=== PATIENT | male | born 1985 | race Caucasian/White ===

== ENCOUNTER 2017-02-19 01:29 | Inpatient (IN) | payer MEDICAID, OTHER ==
[~2017-02-19] VITALS: Ht 170.2 cm; Wt 94.5 kg
[2017-02-19 01:33] VITALS: Ht 170.2 cm; Wt 94.5 kg
[2017-02-19] MEDS ORDERED: CEFTRIAXONE 1 GM/50 ML (PMX) 50 ML IVPB STA (06:17)
[2017-02-19] MEDS ORDERED: SODIUM CHLORIDE 0.9% 1L BAG IV* STA (06:17)
[2017-02-19 06:29] LABS: ABNORMAL IP MESSAGE 1; BASOPHIL # 0.1 10^3/ul (0.0-0.1); BASOPHILS % 0.5 % (0.0-2.0); EOSINOPHILS # 0.1 10^3/ul (0.0-0.5); EOSINOPHILS % 0.4 % (0.0-7.0); HEMATOCRIT 46.5 % (42.0-52.0); HEMOGLOBIN 16.2 g/dl (14.0-18.0); LYMPHOCYTES # 3.2 10^3/ul (0.8-2.9); LYMPHOCYTES % 13.4 % (15.0-51.0); MEAN CORPUSCULAR HEMOGLOBIN 28.9 pg (29.0-33.0); MEAN CORPUSCULAR HGB CONC 34.8 g/dl (32.0-37.0); MEAN PLATELET VOLUME 8.5 fl (7.4-10.4); MONOCYTE # 1.6 10^3/ul (0.3-0.9); MONOCYTES % 6.6 % (0.0-11.0); NEUTROPHIL # 18.8 10^3/ul (1.6-7.5); NEUTROPHILS % 78.4 % (39.0-77.0); PLATELET COUNT 419 10^3/UL (140-415); POSITIVE DIFF @See below; RED CELL DISTRIBUTION WIDTH 13.7 % (11.5-14.5)
[2017-02-19] MEDS ORDERED: VANCOMYCIN 1 GM (PMX) 250 ML IVPB ONE (06:30)
[2017-02-19 06:52] LABS: ALBUMIN 4.6 g/dl (3.3-4.9); ALBUMIN/GLOBULIN RATIO 1.15; BILIRUBIN,INDIRECT 0.8 mg/dl (0-1.1); BILIRUBIN,TOTAL 0.8 mg/dl (0.2-1.3); CALCIUM 9.4 mg/dl (8.4-10.2); CREATININE 0.88 mg/dl (0.61-1.24); TOTAL PROTEIN 8.6 g/dl (6.1-8.1)
[2017-02-19 07:01] LABS: ADD UMIC YES; UR ASCORBIC ACID NEGATIVE (NEGATIVE); UR BILIRUBIN (Dip) NEGATIVE (NEGATIVE); UR BLOOD (Dip) 1+ mg/dL (NEGATIVE); UR CLARITY CLEAR (CLEAR); UR COLOR YELLOW (YELLOW); UR GLUCOSE (Dip) NEGATIVE (NEGATIVE); UR KETONES (Dip) NEGATIVE (NEGATIVE); UR LEUKOCYTE ESTERASE (Dip) TRACE Leu/ul (NEGATIVE); UR NITRITE (Dip) NEGATIVE (NEGATIVE); UR NONSQUAMOUS EPITHELIAL CELL 1 /HPF (NONE SEEN); UR RBC 3 /HPF (0-5); UR SPECIFIC GRAVITY (Dip) 1.014 (1.003-1.030); UR TOTAL PROTEIN (Dip) NEGATIVE (NEGATIVE); UR UROBILINOGEN (Dip) NEGATIVE (NEGATIVE)
--- NOTE | 2017-02-19 07:05 | RADRPT ---
PROCEDURE: US DVT. CLINICAL INDICATION: Left upper extremity swelling and pain. TECHNIQUE: Multiple longitudinal and transverse images of the left upper extremity veins were obta ined with goodwin scale and color Doppler imaging. 2D grayscale measurements with compression, color D oppler flow, and augmentation was performed. COMPARISON: No prior studies are available for comparison. FINDINGS: The left jugular vein, subclavian vein, axillary vein, and brachial veins are normally compressible throughout. Color flow demonstrates normal filling of the vessel. Normal waveforms are visualized and there is normal response to augmentation. There is soft tissue edema within the antecubital fos sa. IMPRESSION: No evidence of a deep vein thrombosis involving the left upper extremity. RPTAT: HH .Anastasiya Kline MD, MD Date Time Electronically viewed and signed by .Anastasiya Kline MD, MD on 02/19/2017 07:05 .G/
--- NOTE | 2017-02-19 07:27 | RADRPT ---
PROCEDURE: XR Chest. CLINICAL INDICATION: Upper extremity pain and sepsis TECHNIQUE: Single AP view of the chest were obtained COMPARISON: None FINDINGS: The heart and mediastinum are within normal limits. The pulmonary vasculature are unremarkable. The aorta is unremarkable. There is no lung consolidation, pleural effusion or pneumothorax. There i s no acute osseous abnormality. IMPRESSION: No acute disease. RPTAT: AA .Bethany Love MD, MD Date Time Electronically viewed and signed by .Bethany Love MD, MD on 02/19/2017 07:27 .J/
[2017-02-19 07:32] VITALS: TEMP 98.6
[2017-02-19] MEDS ORDERED: SOD CHLORIDE 0.9% 1,000 ML IV SCH ×2 (07:42→12:30)
[2017-02-19 07:45] LABS: INR 0.93; PROTIME 12.5 Sec (12.2-14.2)
[2017-02-19 07:46] LABS: PARTIAL THROMBOPLASTIN TIME 31.7 Sec (25.0-35.0)
--- NOTE | 2017-02-19 07:49 | ERD ---
ER Documentation Chief Complaint Chief Complaint Pt reports he injected meth at 1400, L arm swollen and hot to touch HPI This is a 32-year-old male who presents to the emergency room for evaluation of swollen left arm. This patient does state that he injected methamphetamine at 2 PM on February 18, 2017. The patient states that he noted his arm was hurting and he saw that it was swollen and became progressively worse. The patient noted that his arm was painful and describes his pain as an achy pain worse with any movement of the left arm. Patient denies any other coingestions at this time, and came to the ER today for evaluation of his symptoms. This patient was found to be febrile and tachycardic in triage ROS All systems reviewed and are negative except as per history of present illness. Allergies Allergies: Coded Allergies: No Known Allergy (Unverified , 02/19/17) PMhx/Soc Medical and Surgical Hx: pt denies Medical Hx, pt denies Surgical Hx Hx Alcohol Use: Yes Hx Substance Use: Yes (methamphetamine) Hx Tobacco Use: Yes Smoking Status: Current every day smoker Physical Exam Vitals Vital Signs Date Time Temp Pulse Resp B/P Pulse Ox O2 Delivery O2 Flow Rate FiO2 02/19/17 07:32 98.6 98 16 136/75 97 Room Air 02/19/17 07:28 Nasal Cannula 2 02/19/17 01:33 100.8 133 20 139/77 98 Physical Exam INITIAL VITAL SIGNS: Reviewed by me GENERAL: The patient is well developed and appropriate for usual state of health in no apparent distress HEENT: Pupils equal, round, and reactive to light. EOMI. There is no scleral icterus. NECK: C-spine is soft and supple, there is no meningismus. There is no cervical lymphadenopathy. LUNGS: Clear to auscultation bilaterally. There are no rales, wheezes or rhonchi. HEART: Tachycardic, no murmurs, clicks, rubs or gallops. ABDOMEN: Soft, non-tender, non-distended. There are bowel sounds in all four quadrants. No rebound or guarding. EXTREMITIES: Erythema and soft tissue swelling noted about the left antecubital fossa, there is no peripheral cyanosis, palpable radial and ulnar pulses in the left and right upper extremity which are equal and symmetric bilaterally NEUROLOGICAL: The patient moves all four extremities with 5/5 strength. Cranial nerves II - XII are intact. Normal gait. Alert and oriented SKIN: There is no apparent rash or petechiae. HEME/LYMPHATIC: There is no evidence of excessive bruising or lymphedema. PSYCHIATRIC: The patient does not appear anxious or depressed. Result Diagram: 02/19/17 0558 02/19/17 0558 Results 24 hrs Laboratory Tests Test 02/19/17 05:58 02/19/17 06:05 White Blood Count 24.010^3/ul Red Blood Count 5.6010^6/ul Hemoglobin 16.2g/dl Hematocrit 46.5% Mean Corpuscular Volume 83.0fl Mean Corpuscular Hemoglobin 28.9pg Mean Corpuscular Hemoglobin Concent 34.8g/dl Red Cell Distribution Width 13.7% Platelet Count 80069^3/UL Mean Platelet Volume 8.5fl Neutrophils % 78.4% Lymphocytes % 13.4% Monocytes % 6.6% Eosinophils % 0.4% Basophils % 0.5% Nucleated Red Blood Cells % 0.0/100WBC Neutrophils # 18.810^3/ul Lymphocytes # 3.210^3/ul Monocytes # 1.610^3/ul Eosinophils # 0.110^3/ul Basophils # 0.110^3/ul Nucleated Red Blood Cells # 0.010^3/ul Sodium Level 141mmol/L Potassium Level 4.0mmol/L Chloride Level 103mmol/L Carbon Dioxide Level 26mmol/L Anion Gap 16 Blood Urea Nitrogen 11mg/dl Creatinine 0.88mg/dl Glucose Level 114mg/dl Calcium Level 9.4mg/dl Total Bilirubin 0.8mg/dl Direct Bilirubin 0.00mg/dl Indirect Bilirubin 0.8mg/dl Aspartate Amino Transf (AST/SGOT) 25IU/L Alanine Aminotransferase (ALT/SGPT) 43IU/L Alkaline Phosphatase 129IU/L Total Protein 8.6g/dl Albumin 4.6g/dl Globulin 4.00g/dl Albumin/Globulin Ratio 1.15 Lipase 40U/L Urine Color YELLOW Urine Clarity CLEAR Urine pH 7.0 Urine Specific [place] 1.014 Urine Ketones NEGATIVEmg/dL Urine Nitrite NEGATIVEmg/dL Urine Bilirubin NEGATIVEmg/dL Urine Urobilinogen NEGATIVEmg/dL Urine Leukocyte Esterase TRACELeu/ul Urine Microscopic RBC 3/HPF Urine Microscopic WBC 8/HPF Urine Hemoglobin 1+mg/dL Urine Glucose NEGATIVEmg/dL Urine Total Protein NEGATIVEmg/dl Current Medications Medications (Trade) Dose Ordered Sig/Larry Route PRN Reason Start Time Stop Time Status Last Admin Dose Admin Vancomycin HCl 250 ml @ 125 mls/hr ONCE ONCE IVPB 02/19/17 06:30 02/19/17 08:29 Ceftriaxone Sodium (Rocephin) 50 ml @ 100 mls/hr ONCE STAT IVPB 02/19/17 06:17 02/19/17 06:46 DC 02/19/17 06:50 Sodium Chloride (NS) 3,000 ml BOLUS OVER 2 HOURS STAT IV* 02/19/17 06:17 02/19/17 06:18 DC 02/19/17 06:50 Procedures/MDM EKG: Rate/Rhythm: Sinus tachycardia QRS, ST, T-waves: [No changes consistent w/ acute ischemia] Impression: [No evidence of ischemia or arrhythmia] Chest X-ray 1V Interpreted by me: Soft Tissue: No acute abnormalities Bones: No acute abnormalities Mediastinum/Cardiac Silhouette/Lungs: [No acute abnormalities] Ultrasound upper extremity left: No DVT This 32-year-old male presents to the ER for evaluation of left upper extremity pain and swelling after trying to inject methamphetamine through his left antecubital fossa. This patient was found to be febrile, tachycardic and when I examined the patient he did have a large area of erythema noted about the left antecubital fossa. Lab work was ordered on this patient prior to my arrival and the patient does have elevation in his white blood cell count. Sepsis protocol was started and this patient was started on vancomycin and Rocephin. He was given greater than 30 cc/kg of IV normal saline after blood cultures were obtained. Ultrasound of the left upper extremity does not show any signs of DVT at this time however given his cellulitis with constitutional symptoms of fever, tachycardia and leukocytosis he does meet sepsis criteria will be placed in for admission at this time on the [facility] floor. He is hemodynamically stable with a mean arterial pressure greater than 65 and will be admitted to Dr. Flowers at this time. The patient is aware of his disposition and is okay with her plan of care. Smoking Cessation Therapy: Pt. was lectured for greater than 3 minutes on the health risks of continued smoking and the benefits of cessation. Critical Care: Excluding all billable procedures Time: 38 minutes Treatments/Evaluations: Close monitoring and treatment of unstable vital signs, cardiorespiratory, and neurologic status, while maintaining tight balance of fluid, respiratory, and cardiac interventions. Departure Diagnosis: Primary Impression: Sepsis Additional Impressions: Left arm cellulitis Amphetamine abuse Tobacco abuse Condition: Stable CHARLOTTE OATES DO Feb 19, 2017 07:49
[2017-02-19] MEDS ORDERED: ONDANSETRON 4 MG INJ IV PRN ×2 (08:00→10:00)
[2017-02-19] MEDS ORDERED: ACETAMINOPHEN 325 MG TAB PO PRN ×2 (08:00→10:00)
[2017-02-19] MEDS ORDERED: ACETAMINOPHEN 500 MG TAB PO STA (08:13)
[2017-02-19] MEDS ORDERED: HYDROCODONE/APAP (5/325) TAB PO PRN (10:00)
[2017-02-19] MEDS ORDERED: LEVOFLOXACIN 500MG/D5W (PMX) 100 ML IVPB SCH (10:00)
[2017-02-19] MEDS ORDERED: morphine 2 MG INJ IV PRN (10:00)
[2017-02-19] MEDS ORDERED: VANCOMYCIN IV PER PHARMACY XX SCH (10:00)
[2017-02-19] MEDS ORDERED: NACL 0.9% 3 ML SYG IV SCH (10:00)
--- NOTE | 2017-02-19 12:08 | HP ---
Date/Time of Note Date/Time of Note DATE: 02/19/17 TIME: 12:07 Assessment/Plan VTE Prophylaxis VTE Prophylaxis Intervention: LMWH Assessment/Plan Chief Complaint/Hosp Course 1. Left upper proximity cellulitis. Most probably secondary to IV infiltration of recreational drug. Left upper extremity venous Doppler study has been negative. The patient will be started on empiric antibiotics. Infectious disease consult will be obtained. The patient has no evidence of any underlying abscess. There is no evidence of any necrotizing fasciitis. 2. Sepsis with underlying left upper extremity cellulitis. No evidence of any septic shock. Lactic acid levels within normal limits. The patient will be adequately hydrated. The patient will be made on empiric antibiotics. Pancultures will be obtained. 3. Substance abuse. Cessation will be advised. A urine drug screen will be obtained. Hepatitis panel will be obtained. Plan: The patient will be admitted to inpatient medical surgical floor. The patient will be started on a regular diet. The patient will be started on DVT prophylaxis. The patient will remain a full code. Activities will be as tolerated. The rest of the patient's management will be based on the clinical course, inputs from consultants, and the results of diagnostic studies. Based on the patient's clinical presentation, he most probably requires at least 1 midnight's stay for further management and evaluation of his clinical presentation. The case and management of this patient was fully discussed with Dr. Flowers. Problems: HPI/ROS Admit Date/Time Admit Date/Time Feb 19, 2017 at 07:43 Hx of Present Illness Reason for admission: Left upper extremity swelling and erythema status post methamphetamine injection. Consults 1. Ceasar Drake MD, Infectious Diseases This is a 32-year-old male with no significant past medical history who came to the emergency room with chief complaint of left upper extremity edema, erythema , and pain that started after he injected methamphetamine to his left upper extremity. The patient verbalized that he has been using methamphetamine through his veins for a while. The patient verbalized subjective fevers. The patient denied any secretions from the area of redness. In the emergency room, the patient was noticed to have leukocytosis with a WBC of 24,000. The patient' s lactic acid levels were within normal limits. The patient was febrile with a temperature 100.8. The patient was treated with IV vancomycin and IV ceftriaxone in the emergency room. ROS Constitutional: chills Eyes: no complaints ENT: no complaints Respiratory: no complaints Cardiovascular: no complaints Gastrointestinal: no complaints Genitourinary: no complaints Musculoskeletal: bone/joint pain (Left elbow joint) Skin: erythema, rash Neurologic: no complaints Endocrine: no complaints Lymphatic: no complaints Psychological: no complaints Immunologic: no complaints PMH/Family/Social Past Medical History Medical History: no pertinent history Past Surgical History Past Surgical Hx: no surgical history Social History Smoking Status: Current every day smoker Drug Use: other (Methamphetamines) Exam/Review of Systems Vital Signs Vitals Vital Signs Date Time Temp Pulse Resp B/P Pulse Ox O2 Delivery O2 Flow Rate FiO2 02/19/17 07:32 98.6 98 16 136/75 97 Room Air 02/19/17 07:28 2 Labs Result Diagram: 02/19/1758 02/19/1758 Medications Medications Current Medications Sodium Chloride (NS) 1,000 ml @ 80 mls/hr [id number] IV ; Start 02/19/17 at 07:42 ; Stop 02/19/17 at 20:11 Ondansetron HCl (Zofran Inj) 4 mg Q6H PRN IV NAUSEA AND/OR VOMITING; Start at 10:00 Acetaminophen (Tylenol Tab) 650 mg Q6H PRN PO PAIN LEVEL 1-3 OR FEVER; Start 02/19/17 at 10:00 Acetaminophen/ Hydrocodone Bitart (Winston (5/325)) 1 tab Q6H PRN PO MODERATE PAIN LEVEL 4-6; Start 02/19/17 at 10:00 Morphine Sulfate (morphine) 2 mg Q4H PRN IV SEVERE PAIN LEVEL 7-10; Start at 10:00 Enoxaparin Sodium 40 mg 40 mg DAILY SC ; Start 02/20/17 at 09:00 Levofloxacin/ Dextrose 100 ml @ 100 mls/hr Q24H IVPB ; Start 02/19/17 at 10:00 Vancomycin HCl (Vancocin) 250 ml @ 125 mls/hr Q8 IVPB ; Start 02/19/17 at 14: 00 Procedures Procedures 12-Lead EKG Sinus tachycardia CXR IMPRESSION: No evidence of a deep vein thrombosis involving the left upper extremity. LUE Venous Doppler IMPRESSION: No evidence of a deep vein thrombosis involving the left upper extremity. KIARRA MCKAY NP Feb 19, 2017 12:08
--- NOTE | 2017-02-19 13:59 | CONS ---
DATE OF ADMISSION: 02/19/2017 DATE OF CONSULTATION: 02/19/2017 TYPE OF CONSULTATION: Infectious Disease. REASON FOR CONSULTATION: Antibiotic management. HISTORY OF PRESENT ILLNESS: Jude Ovalles is a 32-year-old male who comes in with left upper extremit y cellulitis and is being seen for antibiotic management. The patient is a 32-year-old male with no significant past medical history, comes in with left upper extremity edema, erythema, pain which st arted after he injected methamphetamine to his left upper extremity. He had some subjective fever. In the emergency room, his white count was 24,000, H and H of 16.2 and 46.5, platelet count 419,000 . BUN and creatinine 11/0.88. PAST MEDICAL HISTORY: Operations: None. FAMILY HISTORY: Noncontributory. SOCIAL HISTORY: He smokes every day. He uses methamphetamines and obviously shoots up. No history of alcohol abuse. ALLERGIES: NONE TO PENICILLIN, SULFA OR FOODS. MEDICATIONS: Per chart. REVIEW OF SYSTEMS: As per HPI. PHYSICAL EXAMINATION: GENERAL: The patient is a well-developed, well-nourished male who is awake, responsive, in no acute distress. VITAL SIGNS: Stable. He is afebrile. SKIN: Without generalized rash. HEENT: Within normal limits. NECK: Supple. LYMPH NODES: None palpable. CHEST: Decreased breath sounds at the bases. HEART: Without murmur or gallop. ABDOMEN: Soft, nontender, without organosplenomegaly or masses. EXTREMITIES: He has erythema and soft tissue swelling of the left antecubital fossa without cyanosi s. Pulses are good and symmetrical. RECTAL AND GENITAL: Deferred. NEUROLOGIC: No focal neurological abnormalities. IMPRESSION AND PLAN: 1. The patient presents now with IV drug abuse. He has blood cultures pending. He was started on vancomycin and Levaquin. Blood cultures were ordered urine cultures were ordered. Chest x-ray show s no acute disease. DVT study: No evidence of deep vein thrombophlebitis of left upper extremity. 2. Cellulitis secondary to IV drug abuse. Blood cultures are pending. We will continue him on van comycin and Levaquin. I want to thank the hospitalist for asking us to see this unfortunate gentleman in consultation. Dictated By: SAVI HUERTAS MD, JD/MARIA GUADALUPE Conf#: [id number] DID#: [id number] CC: MICHELLE CRAIG MD;*EndCC*
[2017-02-19 14:00] VITALS: BP 112/59; PULSE 91; RESP 20
[2017-02-19] MEDS: VANCOMYCIN 1 GM in NS 250 ML IVPB SCH ×2 (15:21→22:00)
[2017-02-19 18:24] LABS: CANNABINOIDS Positive (NEGATIVE); OPIATES Negative (NEGATIVE)
[2017-02-19 18:32] LABS: BARBITURATES Negative (NEGATIVE); BENZODIAZEPINES Negative (NEGATIVE); COCAINE Negative (NEGATIVE)
[2017-02-19] MEDS ORDERED: INFLUENZA VIRUS VACCINE 0.5 ML SYG IM* ONE (20:00)
[2017-02-19 20:23] VITALS: BP 115/62; RESP 18
[2017-02-20] MEDS ORDERED: INFLUENZA VIRUS VACCINE 0.5 ML SYG IM* ONE (09:00)
[2017-02-20] MEDS ORDERED: ENOXAPARIN 40 MG/0.4 ML SYG SC SCH (09:00)
--- NOTE | 2017-02-20 09:31 | DS ---
Date/Time of Note Date/Time of Note DATE: 02/20/17 TIME: 09:30 Discharge Summary Admission/Discharge Info Admit Date/Time Feb 19, 2017 at 07:43 Discharge Date/Time Feb 19, 2017 at 22:00 ELOPED Discharge Diagnosis 1. Left upper extremity cellulitis. 2. Sepsis with underlying left upper extremity cellulitis. 3. Substance abuse. Patient Condition: Fair Consults 1. Ceasar Gunn MD, Infectious Diseases. Procedures CXR IMPRESSION: No acute disease. LUE Venous Doppler IMPRESSION: No evidence of a deep vein thrombosis involving the left upper extremity. Hx of Present Illness Reason for admission: Left upper extremity swelling and erythema status post methamphetamine injection. Consults 1. Ceasar Drake MD, Infectious Diseases This is a 32-year-old male with no significant past medical history who came to the emergency room with chief complaint of left upper extremity edema, erythema , and pain that started after he injected methamphetamine to his left upper extremity. The patient verbalized that he has been using methamphetamine through his veins for a while. The patient verbalized subjective fevers. The patient denied any secretions from the area of redness. In the emergency room, the patient was noticed to have leukocytosis with a WBC of 24,000. The patient' s lactic acid levels were within normal limits. The patient was febrile with a temperature 100.8. The patient was treated with IV vancomycin and IV ceftriaxone in the emergency room. Hospital Course The patient was admitted to inpatient medical surgical floor. He was started on empiric antibiotics. Briones cultures were obtained. The patient's left upper extremity venous Doppler study that was obtained in the ER was negative for any DVT. The patient had no evidence of any underlying abscess. The patient was seen by infectious diseases. Towards the night of 02/19/2017, the patient was not seen in his room. Around 2150 on 02/19/2017 the patient's room was found to be empty with IV line pulled and off the floor, and the patient's gown on the counter. The patient was deemed to be eloped. Case discussed with Dr. Flowers. Follow-up Plan No discharge planning was done since the patient eloped. Primary Care Provider Care Physician No Primary Time spent on discharge: < 30 minutes Pending Labs Laboratory Tests Test 02/19/17 11:00 02/19/17 12:34 02/19/17 17:23 Lactic Acid Level 1.4mmol/L (0.5-2.0) 1.0mmol/L (0.5-2.0) Urine Opiates Screen Negative (NEGATIVE) Urine Barbiturates Negative (NEGATIVE) Urine Amphetamines Screen POSITIVE (NEGATIVE) Urine Benzodiazepines Screen Negative (NEGATIVE) Urine Cocaine Screen Negative (NEGATIVE) Urine Cannabinoids Positive (NEGATIVE) KIARRA MCKAY NP Feb 20, 2017 09:30
== END 2017-02-19 22:00 | disposition left against medical advice (07) | DRG 872 ==
LOC: E/R 01:29 → MS2 07:43
PROVIDERS: ADMIT Internal Medicine; ATTEND Internal Medicine
DX: A41.9 Sepsis, unspecified organism (principal); F15.10 Other stimulant abuse, uncomplicated; L03.114 Cellulitis of left upper limb; Z72.0 Tobacco use
CPT/HCPCS: 36415; 71010; 80053; 80307; 81001; 83605; 83690; 84484; 85025; 85610; 85730; 87040; 87086; 90686; 93005; 93971; 96374; 96375; J0696; J1956; J3370; J7030

== ENCOUNTER 2017-09-21 06:28 | Inpatient (IN) | END 2017-09-22 18:20 | disposition home or self-care (01) | DRG 342 ==